=== PATIENT | female | born 1965 | race Caucasian/White ===

== ENCOUNTER → 2017-08-31 | Outpatient (CLI) | payer BC ==
[~2017-08-31] MED LIST: ALBU0.08 INH; ASPEC81 PO; ASTN NAE; BNT/10 PO; CHOL1CAP57 PO; CLS1 PO; MOME200A INH; MULT-506 PO; PRM625 PO; XPNIN INH
--- NOTE | 2017-08-31 11:50 | DIAGNOSTIC IMAGING REPORT ---
TWO VIEW CHEST CLINICAL HISTORY: Cough. FINDINGS: PA and lateral chest radiographs are compared to study dated 05/11/2015. The cardiomediastinal silhouette is unremarkable. The lungs and pleural spaces are clear. There is no pneumothorax. The bony thorax appears intact. IMPRESSION: No active disease in the chest. Electronically signed by: Casimiro Robles M.D. 08/31/2017 11:48 AM Dictated Date/Time: 08/31/2017 11:48 AM
--- NOTE | 2017-08-31 12:00 | DIAGNOSTIC IMAGING REPORT ---
SINUSES MIN 3 VIEWS ROUTINE CLINICAL HISTORY: Cough. COMPARISON STUDY: Maxillofacial CT 04/16/2016. FINDINGS: The paranasal sinuses and mastoid air cells are clear. No fluid levels identified. The nasal septum is midline. Evidence for prior uncinectomies and partial ethmoidectomies. IMPRESSION: The paranasal sinuses and mastoid air cells are clear. Electronically signed by: Saúl Marc M.D. 08/31/2017 11:58 AM Dictated Date/Time: 08/31/2017 11:57 AM
[2017-08-31 12:15] LABS: BASO % 0.3 %; BASO ABS # 0.02 K/uL (0-0.2); COMPLETE YES; EOS % 2.5 %; IG% 0.1 %; LYMPH % 43.9 %; LYMPH ABS # 3.04 K/uL (1.2-3.4); MEAN CELL VOLUME 94.9 fL (80-100); MEAN CORPUSCULAR HEMOGLOBIN 31.3 pg (25-34); MONO % 7.7 %; NEUT % 45.5 %; PLATELET COUNT 312 K/uL (130-400); RED BLOOD COUNT 4.53 M/uL (4.2-5.4); WHITE BLOOD COUNT 6.92 K/uL (4.8-10.8)
== END | disposition home or self-care (01) ==
LOC: C.RAD1850 10:57
PROVIDERS: ATTEND Internal Medicine Pulmonary Disease
DX: R05 Cough (principal); J45.30 Mild persistent asthma, uncomplicated

== ENCOUNTER → 2017-10-11 | Outpatient (CLI) | payer BC | END | disposition home or self-care (01) | LOC: C.PAPS 15:28 | PROVIDERS: ATTEND Obstetrics & Gynecology | DX: Z12.4 Encounter for screening for malignant neoplasm of cervix (principal) ==

== ENCOUNTER → 2017-11-07 | Outpatient (CLI) | payer BC ==
--- NOTE | 2017-11-08 13:29 | MAMMOGRAPHY REPORT ---
BILATERAL DIGITAL SCREENING MAMMOGRAM TOMOSYNTHESIS WITH CAD: 11/07/2017 CLINICAL HISTORY: Routine screening. TECHNIQUE: Breast tomosynthesis in addition to standard 2D mammography was performed. Current study was also evaluated with a Computer Aided Detection (CAD) system. COMPARISON: Comparison is made to exams dated: 07/11/2009 and 03/01/2008. BREAST COMPOSITION: There are scattered areas of fibroglandular density in both breasts. FINDINGS: An asymmetry in the superior posterior right breast on the MLO view is less prominent juhi ring to the 2007 and 2008 mammograms, confirming benignity. No suspicious mass, architectural distor tion or cluster of microcalcifications is seen. IMPRESSION: ACR BI-RADS CATEGORY 1: NEGATIVE There is no mammographic evidence of malignancy. A 1 year screening mammogram is recommended. The pa tient will receive written notification of the results. Approximately 10% of breast cancers are not detected with mammography. A negative mammographic report should not delay biopsy if a clinically suggestive mass is present. Miranda Valera M.D. ay/:11/07/2017 15:28:37 Wire Coating Operator Metal: Declan MATHUR(R)(M), [facility] letter sent: Normal 1/2 BI-RADS Code: ACR BI-RADS Category 1: Negative
== END | disposition home or self-care (01) ==
LOC: C.MAMM 10:27
PROVIDERS: ATTEND Obstetrics & Gynecology
DX: Z12.31 Encounter for screening mammogram for malignant neoplasm of breast (principal)

== ENCOUNTER 2020-09-24 10:11 | Observation (INO) ==
--- NOTE | 2020-09-24 10:56 | Emergency Department Note ---
History of Present Illness General Chief complaint: Arrhythmia/Palpitations Stated complaint: palpitations, sob Time Seen by Provider: 09/24/20 10:40 Source: patient Mode of arrival: ambulatory Limitations: no limitations History of Present Illness Maximum Pain Intensity: 3 This patient comes in after feeling she had heart palpitations. She notices a couple days ago mostly when she was in bed. She said to be fine during the day. She thought it was related to her estradiol and that have been increased recently so she decreased it and felt better until last she felt these during the day and thought it could be related to caffeine. She felt fine since then until last night around 5:00. She said it felt like her heart was beating fast and racing at times. She managed to go to bed but when she woke up this morning she still felt that way when she went to work she felt winded and dizzy with after walking which is unusual for her. She had flulike symptoms and was actually tested for Covid last week and was negative. She refuses further test today. She has a slight cough but has asthma. No fever or chills. No change in taste or smell. No GI symptoms. She did say that at one point she was sweaty and at times she is felt cold. No lower extremity pain or swelling in her calves. Home Medications Medication Instructions Recorded Confirmed Type desloratadine 5 mg tablet 5 mg PO QPM 06/19/20 09/24/20 History levalbuterol tartrate 45 2 inh INHALATION Q6H #15 g 06/19/20 09/24/20 Rx mcg/actuation aerosol inhaler nebulizer accessories #2 kit 06/19/20 06/19/20 Rx estradiol 0.5 mg PO QAM 09/24/20 09/24/20 History mv,Ca,min-folic acid-vit K1 1 tab PO DAILY 09/24/20 09/24/20 History [One-A-Day Women's 50 Plus] Allergies Allergy/AdvReac Type Severity Reaction Status Date / Time erythromycin base AdvReac Severe vomiting Verified 09/24/20 11:26 metoclopramide AdvReac Severe Joint Pain Verified 09/24/20 11:26 prednisone AdvReac Severe High doses Verified 09/24/20 11:26 cause heart palpitations albuterol AdvReac Mild HEART PALP Unverified 09/24/20 11:26 Penicillins AdvReac Unknown unknown Verified 09/24/20 11:26 Past Med/Surg History Medical History (Updated 09/24/20 @ 14:53 by Lyla Petersen PA-C) Asthma Asthma GERD (gastroesophageal reflux disease) History of Clostridioides difficile colitis 2015 IBS (irritable bowel syndrome) MVP (mitral valve prolapse) Surgical History (Updated 09/24/20 @ 14:37 by Lyla Petersen PA-C) History of cataract s/p extraction History of colonoscopy History of esophagogastroduodenoscopy (EGD) History of nasal surgery History of radical hysterectomy Family History Mother Asthma Diabetes Father , 73 Parkinson disease Sister Stroke Social History Smoking Status: Former smoker packs per day: 1; Years Smoked: 15; Smoking End Date: 1999; Do You Dip or Chew Tobacco: No; Tobacco Cessation Education Requested by Patient: No Hx Alcohol Use: No Hx Substance Use: No Preferred Language: Maltese marital status: Current Living Situation: Spouse 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 How many Children do You have: 2 Feels Safe at Home: Yes Review of Systems A total of 10 systems reviewed and were otherwise negative Physical Exam Vital Signs Vital Signs - 24 hr 09/24/20 10:14 09/24/20 10:28 09/24/20 10:30 Temperature 36.7 C Temperature Source Temporal Artery Scan Pulse Rate 74 70 67 Pulse Rate [Apical] Pulse Rate from SpO2 Sensor Respiratory Rate 18 20 13 Respiratory Effort / Characteristics Non-Labored Spontaneous Respiratory Depth Normal Respiratory Pattern Blood Pressure 136/91 Blood Pressure [Right Arm] Blood Pressure Mean 106 Blood Pressure Mean [Right Arm] Pulse Oximetry 100 Oxygen Delivery Method Room Air Sepsis Recent Fever Within 48 Hours No Sepsis New/Unexplained Change in Mental Status N/A Sepsis Action Taken by Nursing No Action Required 09/24/20 11:00 09/24/20 11:01 09/24/20 11:02 Temperature Temperature Source Pulse Rate 61 60 62 Pulse Rate [Apical] 63 Pulse Rate from SpO2 Sensor 62 Respiratory Rate 17 14 21 Respiratory Effort / Characteristics Non-Labored Spontaneous Respiratory Depth Normal Respiratory Pattern Regular Blood Pressure 126/75 Blood Pressure [Right Arm] 126/75 Blood Pressure Mean 80 Blood Pressure Mean [Right Arm] 92 Pulse Oximetry 99 Oxygen Delivery Method Room Air Sepsis Recent Fever Within 48 Hours Sepsis New/Unexplained Change in Mental Status Sepsis Action Taken by Nursing 09/24/20 11:30 09/24/20 11:31 09/24/20 12:00 Temperature Temperature Source Pulse Rate 61 58 L 62 Pulse Rate [Apical] Pulse Rate from SpO2 Sensor 58 L 58 L 64 Respiratory Rate 12 14 13 Respiratory Effort / Characteristics Respiratory Depth Respiratory Pattern Blood Pressure 120/78 115/78 Blood Pressure [Right Arm] Blood Pressure Mean 83 90 Blood Pressure Mean [Right Arm] Pulse Oximetry 94 100 100 Oxygen Delivery Method Sepsis Recent Fever Within 48 Hours Sepsis New/Unexplained Change in Mental Status Sepsis Action Taken by Nursing 09/24/20 12:01 09/24/20 12:30 09/24/20 12:31 Temperature Temperature Source Pulse Rate 58 L 64 67 Pulse Rate [Apical] Pulse Rate from SpO2 Sensor 58 L 63 66 Respiratory Rate 11 L 17 18 Respiratory Effort / Characteristics Respiratory Depth Respiratory Pattern Blood Pressure 112/71 Blood Pressure [Right Arm] Blood Pressure Mean 82 Blood Pressure Mean [Right Arm] Pulse Oximetry 100 98 98 Oxygen Delivery Method Sepsis Recent Fever Within 48 Hours Sepsis New/Unexplained Change in Mental Status Sepsis Action Taken by Nursing 09/24/20 13:01 09/24/20 13:30 09/24/20 13:31 Temperature Temperature Source Pulse Rate 66 61 61 Pulse Rate [Apical] Pulse Rate from SpO2 Sensor 66 61 62 Respiratory Rate 15 12 21 Respiratory Effort / Characteristics Respiratory Depth Respiratory Pattern Blood Pressure 118/80 119/83 Blood Pressure [Right Arm] Blood Pressure Mean 91 93 Blood Pressure Mean [Right Arm] Pulse Oximetry 100 99 99 Oxygen Delivery Method Sepsis Recent Fever Within 48 Hours Sepsis New/Unexplained Change in Mental Status Sepsis Action Taken by Nursing 09/24/20 14:00 09/24/20 14:01 09/24/20 14:08 Temperature Temperature Source Pulse Rate 61 66 Pulse Rate [Apical] 57 L Pulse Rate from SpO2 Sensor 60 67 Respiratory Rate 17 20 18 Respiratory Effort / Characteristics Respiratory Depth Respiratory Pattern Blood Pressure 117/80 Blood Pressure [Right Arm] 117/80 Blood Pressure Mean 94 Blood Pressure Mean [Right Arm] 92 Pulse Oximetry 100 100 100 Oxygen Delivery Method Room Air Sepsis Recent Fever Within 48 Hours Sepsis New/Unexplained Change in Mental Status Sepsis Action Taken by Nursing 09/24/20 14:30 09/24/20 14:31 Temperature Temperature Source Pulse Rate 61 61 Pulse Rate [Apical] Pulse Rate from SpO2 Sensor 62 61 Respiratory Rate 19 20 Respiratory Effort / Characteristics Respiratory Depth Respiratory Pattern Blood Pressure 145/79 H Blood Pressure [Right Arm] Blood Pressure Mean 90 Blood Pressure Mean [Right Arm] Pulse Oximetry 100 100 Oxygen Delivery Method Sepsis Recent Fever Within 48 Hours Sepsis New/Unexplained Change in Mental Status Sepsis Action Taken by Nursing General: Well developed well nourished female who appears in no acute distress, breathing comfortably on room air. Normal speech HEENT: Normal cephalic atraumatic. Pupils are equal round and reactive to light. Extraocular movements are intact. Oropharynx is pink with moist mucous membranes. No swelling of the mouth lips or tongue. Neck: Supple with a midline trachea. No meningeal signs or stiffness, no JVD or bruits. No Stridor. Chest: Clear to auscultation bilaterally. No wheezes or rhonchi. No increased work of breathing. Heart: Regular rate and rhythm without murmurs or gallops. Abdomen: Soft nontender, nondistended without rebound guarding or rigidity. Extremities: No cyanosis clubbing or edema. No calf tenderness or assymetry Spine/Back. Non tender to palpation. No CVA tenderness Skin: Good turgor without rashes. Neurologic exam: Cranial nerves two through 12 are intact. Motor and sensation are intact and symmetrical throughout. Course Administered Medications Discontinued Medications Sodium Chloride (Nss 1000ml) 1,000 mls @ 999 mls/hr IV .Q1H1M KIRSTY Stop: 09/24/20 12:00 Last Infusion: 09/24/20 12:03 Dose: 0 mls/hr Documented by: [id number] Admin: 09/24/20 11:00 Dose: 999 mls/hr Documented by: [id number] Ioversol (Optiray 320 125ml) 119 ml IV ONCE ONE Stop: 09/24/20 12:57 Last Admin: 09/24/20 12:57 Dose: 119 ml Documented by: [id number] Potassium Chloride (Potassium Chloride 10 Meq Tabcr) Confirm Administered Dose 40 meq PO .STK-MED ONE Stop: 09/24/20 14:14 Last Admin: 09/24/20 14:16 Dose: 40 meq Documented by: [id number] Medical Decision Making Differential Diagnosis Acute coronary syndrome, arrhythmia, thyroid disease, medication side effect, anxiety, PE, Covid, pneumothorax, anemia, infection Medical Records Attestation: I reviewed the patient's medical records. Laboratory Data Attestation: I reviewed the patient's lab results. Result diagrams: 09/24/20 10:32 09/24/20 10:32 Lab Results 09/24/20 09/24/20 09/24/20 Range/Units 10:32 10:32 10:32 WBC 8.29 (4.8-10.8) K/uL RBC 4.87 (4.2-5.4) M/uL Hgb 15.1 (12.0-16.0) g/dL Hct 45.7 (37-47) % MCV 93.8 (80-100) fL MCH 31.0 (25-34) pg MCHC 33.0 (32-36) g/dL RDW Std Deviation 47.1 H (36.4-46.3) fL RDW Coeff of Imelda 13.8 (11.5-14.5) % Plt Count 397 (130-400) K/uL MPV 10.4 (7.4-10.4) fL Immature Gran % (Auto) 0.1 % Neut % (Auto) 56.1 % Lymph % (Auto) 35.9 % [place] % (Auto) 6.2 % Eos % (Auto) 1.6 % Baso % (Auto) 0.1 % Neut # (Auto) 4.65 (1.4-6.5) K/uL Lymph # (Auto) 2.98 (1.2-3.4) K/uL [place] # (Auto) 0.51 (0.11-0.59) K/uL Eos # (Auto) 0.13 (0-0.5) K/uL Baso # (Auto) 0.01 (0-0.2) K/uL Immature Gran # (Auto) 0.01 (0.00-0.02) K/uL PT 10.3 (9.0-12.0) Seconds INR 1.0 (0.9-1.1) APTT 33.5 H (21.0-31.0) Seconds PTT Ratio 1.2 D-Dimer 410 (0-500) ug/L FEU Sodium 140 (136-145) mmol/L Potassium 3.7 (3.5-5.1) mmol/L Chloride 107 (98-107) mmol/L Carbon Dioxide 27 (21-32) mmol/L Anion Gap 6.0 (3-11) BUN 17 (7-18) mg/dl Creatinine 0.86 (0.6-1.2) mg/dl Est Cr Clr Drug Dosing 88.7 ml/min Est GFR ( Amer) 87.5 Est GFR (Non-Af Amer) 75.5 BUN/Creatinine Ratio 20.3 H (10-20) Glucose 79 (70-99) mg/dl Calcium 9.2 (8.5-10.1) mg/dl Magnesium (1.8-2.4) mg/dl Total Bilirubin 0.3 (0.2-1) mg/dl AST 14 L (15-37) U/L ALT 20 (12-78) U/L Alkaline Phosphatase 87 (45-117) U/L Troponin I < 0.015 (0-0.045) ng/ml Total Protein 7.8 (6.4-8.2) gm/dl Albumin 3.6 (3.4-5.0) gm/dl Globulin 4.2 H (2.5-4.0) gm/dl Albumin/Globulin Ratio 0.9 (0.9-2) Lipase 156 (73-393) U/L TSH (0.300-4.500) uIu/ml COVID-19 Eval Order SARS-CoV-2, RNA, NAAT (NEGATIVE) 09/24/20 09/24/20 09/24/20 Range/Units 10:32 14:05 14:05 WBC (4.8-10.8) K/uL RBC (4.2-5.4) M/uL Hgb (12.0-16.0) g/dL Hct (37-47) % MCV (80-100) fL MCH (25-34) pg MCHC (32-36) g/dL RDW Std Deviation (36.4-46.3) fL RDW Coeff of Imelda (11.5-14.5) % Plt Count (130-400) K/uL MPV (7.4-10.4) fL Immature Gran % (Auto) % Neut % (Auto) % Lymph % (Auto) % [place] % (Auto) % Eos % (Auto) % Baso % (Auto) % Neut # (Auto) (1.4-6.5) K/uL Lymph # (Auto) (1.2-3.4) K/uL [place] # (Auto) (0.11-0.59) K/uL Eos # (Auto) (0-0.5) K/uL Baso # (Auto) (0-0.2) K/uL Immature Gran # (Auto) (0.00-0.02) K/uL PT (9.0-12.0) Seconds INR (0.9-1.1) APTT (21.0-31.0) Seconds PTT Ratio D-Dimer (0-500) ug/L FEU Sodium (136-145) mmol/L Potassium (3.5-5.1) mmol/L Chloride (98-107) mmol/L Carbon Dioxide (21-32) mmol/L Anion Gap (3-11) BUN (7-18) mg/dl Creatinine (0.6-1.2) mg/dl Est Cr Clr Drug Dosing ml/min Est GFR ( Amer) Est GFR (Non-Af Amer) BUN/Creatinine Ratio (10-20) Glucose (70-99) mg/dl Calcium (8.5-10.1) mg/dl Magnesium 2.3 (1.8-2.4) mg/dl Total Bilirubin (0.2-1) mg/dl AST (15-37) U/L ALT (12-78) U/L Alkaline Phosphatase (45-117) U/L Troponin I (0-0.045) ng/ml Total Protein (6.4-8.2) gm/dl Albumin (3.4-5.0) gm/dl Globulin (2.5-4.0) gm/dl Albumin/Globulin Ratio (0.9-2) Lipase (73-393) U/L TSH 1.440 (0.300-4.500) uIu/ml COVID-19 Eval [facility] SARS-CoV-2, RNA, NAAT NEGATIVE (NEGATIVE) Imaging Data Radiologist's Impression: CT angio chest PE protocol CT DOSE: 545.72 mGycm HISTORY: 55 years-old Female with PE. Acute shortness of breath with chest pain TECHNIQUE: Multiple CTA images of the chest were obtained after the intravenous administration of 119 ml Optiray 320. Coronal and sagittal MIPS were obtained from the axial data set and were submitted for review. All measurements were obtained according to NASCET criteria. A dose lowering technique was utilized adhering to the principles of ALARA. COMPARISON: Chest radiograph of same day, CTA chest 05/11/2015 FINDINGS: CTA: The heart is normal in size. There is no pericardial effusion. No thoracic aortic aneurysm or dissection. There is patency of the imaged great vessels. The pulmonary artery is opacified to the level of the segmental branches and demonstrates no filling defects to suggest thromboembolic disease. CT CHEST: Unremarkable thyroid. No pathologically enlarged lymph nodes. There is a 1.3 x 0.9 cm nodular focus of the upper outer quadrant right breast on image 181 series 4 which appears unchanged from the 2015 study. There is no pneumothorax, pleural effusion, airspace consolidation or overt pulmonary edema. Mild dependent bibasilar groundglass densities suggest probable atelectasis.. Punctate calcific granuloma of the right lung apex. There are several bilateral low suspicion solid pulmonary nodules noted measuring up to 4 mm (please see bookmarks). Most of these appear to be new from 2015. There is no acute process of the imaged upper abdomen. Tiny hiatal hernia. Hypodense lesion of the right hepatic lobe measuring up to 2.3 cm demonstrates water attenuation is suggestive of a cyst, however previously measured 1.2 cm. A few additional scattered hypodensities of the left hepatic lobe are also noted which are incompletely characterized on this exam. Bones appear intact. There is no acute fracture. IMPRESSION: 1. No evidence of pulmonary emboli. 2. No adenopathy, pleural effusion or airspace consolidation to suggest pneumonia. 3. There are several scattered low suspicion bilateral solid pulmonary nodules measuring up to 4 mm. Follow-up guidelines provided below. 4. Tiny hiatal hernia. XR chest 1V portable CLINICAL HISTORY: Atypical chest pain. COMPARISON STUDY: Chest radiograph June 17, 2020. FINDINGS: Lung volumes are normal. Lungs are clear. There is no pneumothorax or pleural effusion. Cardiac size is normal. Mediastinal contours are normal. There is no evidence for pulmonary edema. IMPRESSION: No acute cardiopulmonary findings. ECG Data Attestation: I personally reviewed and interpreted this ECG as follows: Indication: + palpitations Rate (beats per minute): 67 Rhythm: + normal sinus ECG Intervals/blocks: + Normal QRS, + Normal QT and + Normal FL ECG [place]: + Normal ECG ST segments: + Normal ST segments ECG Findings: no PACs and no PVCs Comparison ECG Date: from (06/16/20) [facility] Narrative This patient comes in after every palpitations at present she looks well she felt short of breath with walking. She has a nonischemic EKG her troponin is negative symptoms been going on for several weeks off and on. I did a chest x-r ay was unremarkable her D-dimer was high end of normal so I did a chest CT and it was unremarkable. there is no PE or pneumonia. She has had Covid testing within the last week ended I think likely has Covid testing, I suggest we recheck her here she declines. On her CT she has no Covid type changes. She has no significant electrolyte or metabolic abnormalities. Despite her initial cardiac work-up looking okay here, I am concerned that she had an episode today where she got diaphoretic and short of breath and did not feel well with near syncope while walking and exerting herself. I do think she would benefit for further cardiac evaluation. I have consulted the hospitalist team to see her in the ER. Continuous cardiac monitoring: An order was placed in the EMR for continuous cardiac monitoring. The patient was noted to be in normal sinus rhythm with a rate of 67. Impression & Plan Near syncope, Palpitations, MCFARLANE (dyspnea on exertion), Chest pain Discharge Plan Visit Data Chief Complaint: Arrhythmia/Palpitations Stated Complaint: palpitations, sob ED Provider: Garrett Abrams Discharge Problem: Near syncope, Palpitations, MCFARLANE (dyspnea on exertion), Chest pain Forms Stand Alone Forms: My [facility] CodeRyte Prescriptions Prescriptions: No Action desloratadine 5 mg tablet 5 mg PO QPM RF: 0 levalbuterol tartrate [Xopenex HFA] 45 mcg/actuation HFA aerosol inhaler 2 inh inhalation Q6H Qty: 15 RF: 3 (DME) nebulizer accessories Kit See Rx Instructions .ROUTE .MEDSUPPLY Qty: 2 RF: 5 estradiol 0.5 mg tablet 0.5 mg PO QAM RF: 0 One-A-Day Women's 50 Plus 400-20 mcg Tablet 1 tab PO DAILY RF: 0 Discharge Problem: Chest pain Qualifiers: Chest pain type: unspecified Qualified Code(s): R07.9 - Chest pain, unspecified
[2020-09-24] MEDS ORDERED: SODIUM CHLORIDE 0.9% 1000ML 1,000 ML IV SCH (11:00)
[2020-09-24 11:12] LABS: Basophils # (auto) 0.01 K/uL (0-0.2); Basophils % (auto) 0.1 %; Eosinophils # (auto) 0.13 K/uL (0-0.5); Eosinophils % (auto) 1.6 %; Hematocrit (blood only) 45.7 % (37-47); Hemoglobin 15.1 g/dL (12.0-16.0); Immature Granulocytes # (auto) 0.01 K/uL (0.00-0.02); Immature Granulocytes % (auto) 0.1 %; Lymphocytes # (auto) 2.98 K/uL (1.2-3.4); Lymphocytes % (auto) 35.9 %; Mean Corpuscular Volume 93.8 fL (80-100); Mean Platelet Volume 10.4 fL (7.4-10.4); Monocytes # (auto) 0.51 K/uL (0.11-0.59); Monocytes % (auto) 6.2 %; Neutrophils # (auto) 4.65 K/uL (1.4-6.5); Neutrophils % (auto) 56.1 %; Platelet Count 397 K/uL (130-400); RDW Coefficient of Variation 13.8 % (11.5-14.5); RDW Standard Deviation 47.1 fL (36.4-46.3); Red Blood Count 4.87 M/uL (4.2-5.4); White Blood Count 8.29 K/uL (4.8-10.8)
[2020-09-24 11:19] LABS: D Dimer 410 ug/L FEU (0-500); Partial Thromboplastin Ratio 1.2; Partial Thromboplastin Time 33.5 Seconds (21.0-31.0); Prothrombin Time 10.3 Seconds (9.0-12.0)
[2020-09-24 11:26] LABS: Alanine Aminotransferase 20 U/L (12-78); Albumin Level 3.6 gm/dl (3.4-5.0); Aspartate Aminotransferase 14 U/L (15-37); BUN Creatinine Ratio 20.3 (10-20); Blood Urea Nitrogen 17 mg/dl (7-18); Calcium 9.2 mg/dl (8.5-10.1); Carbon Dioxide 27 mmol/L (21-32); Chloride 107 mmol/L (98-107); Creatinine Clr Calc Pharmacy 88.7 ml/min; Est GFR (African American) 87.5; Est GFR (Non-African American) 75.5; Glucose 79 mg/dl (70-99); Lipase 156 U/L (73-393); Potassium 3.7 mmol/L (3.5-5.1); Sodium 140 mmol/L (136-145)
[2020-09-24 11:31] LABS: Albumin Globulin Ratio 0.9 (0.9-2); Alkaline Phosphatase 87 U/L (45-117); Bilirubin,Total 0.3 mg/dl (0.2-1); Globulin 4.2 gm/dl (2.5-4.0); Total Protein 7.8 gm/dl (6.4-8.2); Troponin I < 0.015 ng/ml (0-0.045)
--- NOTE | 2020-09-24 11:37 | XRay Report ---
XR chest 1V portable CLINICAL HISTORY: Atypical chest pain. COMPARISON STUDY: Chest radiograph June 17, 2020. FINDINGS: Lung volumes are normal. Lungs are clear. There is no pneumothorax or pleural effusion. Car diac size is normal. Mediastinal contours are normal. There is no evidence for pulmonary edema. IMPRESSION: No acute cardiopulmonary findings. ACT 112: Negative or not required by law. Electronically signed by: Eladio Gomez M.D. 09/24/2020 11:36 AM
[2020-09-24] MEDS ORDERED: OPTIRAY 320 125ml IV ONE (12:56)
--- NOTE | 2020-09-24 13:11 | CT Scan Report ---
CT angio chest PE protocol CT DOSE: 545.72 mGycm HISTORY: 55 years-old Female with PE. Acute shortness of breath with chest pain TECHNIQUE: Multiple CTA images of the chest were obtained after the intravenous administration of 119 ml Optiray 320. Coronal and sagittal MIPS were obtained from the axial data set and were submitted for review. All measurements were obtained according to NASCET criteria. A dose lowering technique w as utilized adhering to the principles of ALARA. COMPARISON: Chest radiograph of same day, CTA chest 05/11/2015 FINDINGS: CTA: The heart is normal in size. There is no pericardial effusion. No thoracic aortic aneurysm or dissect ion. There is patency of the imaged great vessels. The pulmonary artery is opacified to the level of the segmental branches and demonstrates no filling defects to suggest thromboembolic disease. CT CHEST: Unremarkable thyroid. No pathologically enlarged lymph nodes. There is a 1.3 x 0.9 cm nodular focus o f the upper outer quadrant right breast on image 181 series 4 which appears unchanged from the 2015 s tudy. There is no pneumothorax, pleural effusion, airspace consolidation or overt pulmonary edema. Mild dep endent bibasilar groundglass densities suggest probable atelectasis.. Punctate calcific granuloma of the right lung apex. There are several bilateral low suspicion solid pulmonary nodules noted measurin g up to 4 mm (please see bookmarks). Most of these appear to be new from 2015. There is no acute process of the imaged upper abdomen. Tiny hiatal hernia. Hypodense lesion of the ri ght hepatic lobe measuring up to 2.3 cm demonstrates water attenuation is suggestive of a cyst, howev er previously measured 1.2 cm. A few additional scattered hypodensities of the left hepatic lobe are also noted which are incompletely characterized on this exam. Bones appear intact. There is no acute fracture. IMPRESSION: 1. No evidence of pulmonary emboli. 2. No adenopathy, pleural effusion or airspace consolidation to suggest pneumonia. 3. There are several scattered low suspicion bilateral solid pulmonary nodules measuring up to 4 mm. Follow-up guidelines provided below. 4. Tiny hiatal hernia. Please refer to below summary of Fleischner criteria recommendations for follow-up of incidental CT n odules ([place], Guidelines for management of small pulmonary nodules detected on CT scans: A sta tement from the Fleischner Society, Radiology 237: [phone].) SOLID NODULES Multiple nodules size: <6 mm * Low risk patients: no routine follow-up * high risk patients: optional CT at 12 months Note: newly detected indeterminate nodule in persons 35 years of age or older. * Low risk patients: minimal or absent history of smoking and/or other known risk factors * high risk patients: history of smoking or of other known risk factors (e.g. first degree relative with lung cancer, or exposure to asbestos, radon, uranium) * if a nodule up to 8 mm is partly solid or is ground glass further follow-up is required after 24 m onths to exclude possible slow growing adenocarcinoma (DEON) ACT 112: Negative or not required by law. The above report was generated using voice recognition software. It may contain grammatical, syntax o r spelling errors. Electronically signed by: Pepito Anthony M.D. 09/24/2020 1:10 PM
[2020-09-24] MEDS ORDERED: POLYETHYLENE (MIRALAX) 17 GM PACK PO PRN (14:04)
[2020-09-24] MEDS ORDERED: POTASSIUM CHLORIDE CRTAB 20 MEQ TABCR PO STA (14:04)
[2020-09-24] MEDS ORDERED: ONDANSETRON INJ 2 MG/ML 2 ML VIAL IV PRN (14:04)
[2020-09-24] MEDS ORDERED: MAGNESIUM HYDROXIDE SUSP 30 ML UDC PO PRN (14:04)
[2020-09-24] MEDS ORDERED: ALUMINUM/MAGNESIUM SUSP 30 ML UDC PO PRN (14:04)
[2020-09-24] MEDS ORDERED: ACETAMINOPHEN 325 MG TAB PO PRN (14:04)
[2020-09-24] MEDS ORDERED: POTASSIUM CHLORIDE 10 MEQ TABCR PO ONE (14:13)
--- NOTE | 2020-09-24 14:15 | History & Physical Report ---
Date of Service September 24, 2020 Assessment & Plan (1) Near syncope: (2) Palpitations: (3) [place] (dyspnea on exertion): Admit to tele obtain echocardiogram - pt reported 30 years ago told she had mitral valve prolapse but follow up echocardiograms didn't show that, last 2009 keep mag > 2.0 K > 4.0 - ordered 40meq KCL in ED TSH okay Labs/imaging reviewed continue to monitor on tele - may need ZIO patch as outpt if event not captured while inpatient obtain orthostatics cycle troponin, ecg will hold off on cardiology consult at this point (4) Asthma: no acute exac continue prn levalbuterol (5) Abnormal CT of the chest: Chest CTA was negative for PE, adenopathy, pleural effusion or airspace consolidation. Several scattered low suspicion bilateral solid pulmonary nodules 4 mm. Also noted incidentally were hypodense lesion of right hepatic lobe measuring 2.3 cm suggestive of cyst, but previously 1.2 cm. A few scattered hypodense of the left hepatic lobe as well not completely characteri zed. recommend follow up chest CT in 1 year as outpt recommend RUQ ultrasound as outpatient (6) DVT prophylaxis: SCDS/TEDS if hospitalized > 24 hour consider chemical prophylaxis encourage ambulation Disposition: admit to tele Follow up: PCP Dr. Moran upon discharge Pt was seen and examined in collaboration with Dr. León, please see addendum History of Present Illness Chief Complaint: Palpitations off and on x2 weeks. Primary Care Provider: Chrissy Moran MD This is a 55-year-old female who has significant past medical history of asthma, chronic sinusitis, GERD, IBS, history of C. difficile who presents to ED secondary to palpitations off and on x2 weeks. She states symptoms initially started approximately 2 weeks ago that would come and go and was just described as, "rapid heartbeat," for several minutes before resolving. She noticed last after drinking a coffee with an espresso shot she developed similar symptoms. This also occurred after shoveling snow when she thought maybe she overdid it. Last night symptoms started again at approximately 5 PM. This time it included rapid heartbeat, lightheadedness, nausea and diaphoresis. She also complained of generalized precordial chest tightness. Symptoms slowly improved and she was able to sleep last night. However, when she woke up first in this morning at approximately 6 AM symptoms returned. She tried to go to work and at work developed worsening palpitations, diaphoresis, lightheadedness and dizziness. She also developed shortness of breath and had difficulty walking to her vehicle. She opted to present to ED. She denies similar symptoms in the past. She does elicit a recent increase in her estrogen placement and thought this may be the cause. She denies any tobacco or illicit drug use. She does not drink significant amount of caffeine. She denies any strong family history of heart disease In ED patient remained hemodynamically stable. BP 145/79, heart rate 61. EKG revealed normal sinus rhythm. Her CBC and CMP was generally unremarkable. TSH WNL. Covid screen negative. Chest CTA was negative for PE, adenopathy, pleural effusion or airspace consolidation. Several scattered low suspicion bilateral solid pulmonary nodules 4 mm. Also noted incidentally were hypodense lesion of right hepatic lobe measuring 2.3 cm suggestive of cyst, but previously 1.2 cm. A few scattered hypodense of the left hepatic lobe as well not completely characterized. Allergies Allergy/AdvReac Type Severity Reaction Status Date / Time erythromycin base AdvReac Severe vomiting Verified 09/24/20 11:26 metoclopramide AdvReac Severe Joint Pain Verified 09/24/20 11:26 prednisone AdvReac Severe High doses Verified 09/24/20 11:26 cause heart palpitations albuterol AdvReac Mild HEART PALP Unverified 09/24/20 11:26 Penicillins AdvReac Unknown unknown Verified 09/24/20 11:26 Home Medications Medication Instructions Recorded Confirmed Type desloratadine 5 mg tablet 5 mg PO QPM 06/19/20 09/24/20 History levalbuterol tartrate 45 2 inh INHALATION Q6H #15 g 06/19/20 09/24/20 Rx mcg/actuation aerosol inhaler nebulizer accessories #2 kit 06/19/20 06/19/20 Rx estradiol 0.5 mg PO QAM 09/24/20 09/24/20 History mv,Ca,min-folic acid-vit K1 1 tab PO DAILY 09/24/20 09/24/20 History [One-A-Day Women's 50 Plus] Past Med/Surg History Medical History (Updated 09/24/20 @ 14:53 by Lyla Petersen PA-C) Asthma Asthma GERD (gastroesophageal reflux disease) History of Clostridioides difficile colitis 2016 IBS (irritable bowel syndrome) MVP (mitral valve prolapse) Surgical History (Updated 09/24/20 @ 14:37 by Lyla Petersen PA-C) History of cataract s/p extraction History of colonoscopy History of esophagogastroduodenoscopy (EGD) History of nasal surgery History of radical hysterectomy Family History Mother Asthma Diabetes Father , 73 Parkinson disease Sister Stroke Social History Smoking Status: Former smoker packs per day: 1; Years Smoked: 15; Smoking End Date: 1999; Do You Dip or Chew Tobacco: No; Tobacco Cessation Education Requested by Patient: No Hx Alcohol Use: No Hx Substance Use: No Preferred Language: Spanish marital status: Current Living Situation: Spouse 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 Normal insp/exp effort, no accessory muscle use Cardiovascular: RRR, no murmur, no edema Vessels: no JVD or carotid bruit Chest: normal inspection of chest Abdomen: normal bowel sounds, soft, nontender, no hepatosplenomegaly Musculoskeletal: no cyanosis or clubbing, extremities motor strength 5/5 Skin: no rashes, warm and dry normal turgor Neurologic: PERRL, EOMI, accommodation nl, no face palsy, no dysarthria CN's II-XI intact bilaterally and moves all extremities Psychiatric: A+Ox3, euthymic affect Lymphatic: no cervical or axillary lymphadenopathy : deferred Results & Data Results & Data ([facility] [place]) Vital Signs (Past 12 Hours) Vital Signs Temp Pulse Pulse Resp BP BP Pulse Ox 09/24/20 14:08 57 L 18 117/80 100 09/24/20 14:01 66 20 100 09/24/20 14:00 61 17 117/80 100 09/24/20 13:31 61 21 99 09/24/20 13:30 61 12 119/83 99 09/24/20 13:01 66 15 118/80 100 09/24/20 12:31 67 18 98 09/24/20 12:30 64 17 112/71 98 09/24/20 12:01 58 L 11 L 100 09/24/20 12:00 62 13 115/78 100 09/24/20 11:31 58 L 14 120/78 100 09/24/20 11:30 61 12 94 09/24/20 11:02 62 63 21 126/75 99 09/24/20 11:01 60 14 126/75 09/24/20 11:00 61 17 09/24/20 10:30 67 13 09/24/20 10:28 70 20 09/24/20 10:14 36.7 C 74 18 136/91 100 Laboratory Results Short CBC 09/24/20 Range/Units 10:32 WBC 8.29 (4.8-10.8) K/uL Hgb 15.1 (12.0-16.0) g/dL Hct 45.7 (37-47) % Plt Count 397 (130-400) K/uL BMP 09/24/20 10:32 Sodium 140 Potassium 3.7 Chloride 107 Carbon Dioxide 27 BUN 17 Creatinine 0.86 Glucose 79 Calcium 9.2 Cardiac Enzymes 09/24/20 Range/Units 10:32 Troponin I < 0.015 (0-0.045) ng/ml Liver Function 09/24/20 Range/Units 10:32 Total Bilirubin 0.3 (0.2-1) mg/dl AST 14 L (15-37) U/L ALT 20 (12-78) U/L Alkaline Phosphatase 87 (45-117) U/L Albumin 3.6 (3.4-5.0) gm/dl Diagnostic Findings Chest CTA: FINDINGS: CTA: The heart is normal in size. There is no pericardial effusion. No thoracic aortic aneurysm or dissection. There is patency of the imaged great vessels. The pulmonary artery is opacified to the level of the segmental branches and demonstrates no filling defects to suggest thromboembolic disease. CT CHEST: Unremarkable thyroid. No pathologically enlarged lymph nodes. There is a 1.3 x 0.9 cm nodular focus of the upper outer quadrant right breast on image 181 series 4 which appears unchanged from the 2015 study. There is no pneumothorax, pleural effusion, airspace consolidation or overt pulmonary edema. Mild dependent bibasilar groundglass densities suggest probable atelectasis.. Punctate calcific granuloma of the right lung apex. There are several bilateral low suspicion solid pulmonary nodules noted measuring up to 4 mm (please see bookmarks). Most of these appear to be new from 2015. There is no acute process of the imaged upper abdomen. Tiny hiatal hernia. Hypodense lesion of the right hepatic lobe measuring up to 2.3 cm demonstrates water attenuation is suggestive of a cyst, however previously measured 1.2 cm. A few additional scattered hypodensities of the left hepatic lobe are also noted which are incompletely characterized on this exam. Bones appear intact. There is no acute fracture. IMPRESSION: 1. No evidence of pulmonary emboli. 2. No adenopathy, pleural effusion or airspace consolidation to suggest pneumonia. 3. There are several scattered low suspicion bilateral solid pulmonary nodules measuring up to 4 mm. Follow-up guidelines provided below. 4. Tiny hiatal hernia. Please refer to below summary of Fleischner criteria recommendations for follow- up of incidental CT nodules ([place], Guidelines for management of small pulmonary nodules detected on CT scans: A statement from the Fleischner Society, Radiology 237: [phone].) SOLID NODULES Multiple nodules size: <6 mm * Low risk patients: no routine follow-up * high risk patients: optional CT at 12 months Note: newly detected indeterminate nodule in persons 35 years of age or older. * Low risk patients: minimal or absent history of smoking and/or other known risk factors * high risk patients: history of smoking or of other known risk factors (e.g. first degree relative with lung cancer, or exposure to asbestos, radon, uranium) * if a nodule up to 8 mm is partly solid or is ground glass further follow-up is required after 24 months to exclude possible slow growing adenocarcinoma (DEON) CXR: IMPRESSION: No acute cardiopulmonary findings. Medications Administered Discontinued Medications Sodium Chloride (Nss 1000ml) 1,000 mls @ 999 mls/hr IV .Q1H1M KIRSTY Stop: 09/24/20 12:00 Last Infusion: 09/24/20 12:03 Dose: 0 mls/hr Documented by: [id number] Admin: 09/24/20 11:00 Dose: 999 mls/hr Documented by: [id number] Ioversol (Optiray 320 125ml) 119 ml IV ONCE ONE Stop: 09/24/20 12:57 Last Admin: 09/24/20 12:57 Dose: 119 ml Documented by: [id number] ECG Rate (beats per minute): 67 Rhythm: normal sinus Code Status & VTE Plan Code Status Full Code VTE Prophylaxis Plan VTE Prophylaxis will be ordered: Yes Supervising Physician Co-Signing Physician Notes Attending addendum: The patient was seen and examined in medical telemetry unit She has been complaining of paroxysmal palpitation for the last 3 to 4 weeks The longest one happened to be this morning with shortness of breath, chest pain and swelling She is not a heavy drinker of coffee and/or alcohol Denies any symptoms during examination On examination No apparent distress at rest Chest-clear to auscultate bilaterally Heart-S1, S2 and no murmur appreciated-she has a history of mitral valve prolapse Abdomen-benign Extremities-no edema Her admission labs, EKG and imaging studies reviewed EKG remained in sinus rhythm, possible J-point elevation, minimal involving the inferior leads We will check troponin x3 and echocardiogram Monitor her in the telemetry unit If ruled out and if no other arrhythmias she can be discharged tomorrow with a Holter monitor for about a week Agree with assessment and plan as outlined above by STEPHANY Paiz Dr
[2020-09-24 14:47] LABS: Magnesium 2.3 mg/dl (1.8-2.4); Thyroid Stimulating Hormone 1.44 uIu/ml (0.300-4.500)
--- NOTE | 2020-09-24 17:09 | Electrocardiogram Report ---
Test Reason : Blood Pressure : / mmHG Vent. Rate : 067 BPM Atrial Rate : 067 BPM P-R Int : 166 ms QRS Dur : 078 ms QT Int : 426 ms P-R-T Axes : 044 048 043 degrees QTc Int : 450 ms Normal sinus rhythm Low voltage QRS Borderline ECG When compared with ECG of 16-JUN-2020 23:53, No significant change was found Confirmed by Jevon Lepe ([id number]) on 09/24/2020 5:09:01 PM Referred By: Confirmed By:Jevon Lepe
[2020-09-24] MEDS ORDERED: LEVALBUTEROL TARTRATE 15 GM HFA.AER.AD INH PRN (17:17)
[2020-09-25 06:18] LABS: Chol HDL Ratio 2; Cholesterol 206 mg/dl (0-200); HDL Cholesterol 107 mg/dl; LDL Cholesterol Calculated 84 mg/dl; Triglycerides 77 mg/dl (0-150); VLDL Cholesterol 15 mg/dl
[2020-09-25 06:50] LABS: Estimated Average Glucose 117 mg/dl; Hemoglobin A1C 5.7 % (4.5-5.6)
[2020-09-25] MEDS ORDERED: estradioL 1 MG TAB PO SCH (09:00)
[2020-09-25] MEDS ORDERED: MULTIVITAMIN TAB PO SCH (09:00)
--- NOTE | 2020-09-25 09:27 | Electrocardiogram Report ---
Test Reason : Blood Pressure : / mmHG Vent. Rate : 059 BPM Atrial Rate : 059 BPM P-R Int : 182 ms QRS Dur : 080 ms QT Int : 444 ms P-R-T Axes : 077 063 067 degrees QTc Int : 439 ms Sinus bradycardia Otherwise normal ECG When compared with ECG of 24-SEP-2020 10:36, No significant change was found Confirmed by Jevon Lepe ([id number]) on 09/25/2020 9:27:25 AM Referred By: Chrissy Moran Confirmed By:Jevon Lepe
--- NOTE | 2020-09-25 12:44 | Discharge Summary ---
Date of Service September 25, 2020 Admission HPI Per Admitting Provider This is a 55-year-old female who has significant past medical history of asthma, chronic sinusitis, GERD, IBS, history of C. difficile who presents to ED secondary to palpitations off and on x2 weeks. She states symptoms initially started approximately 2 weeks ago that would come and go and was just described as, "rapid heartbeat," for several minutes before resolving. She noticed last after drinking a coffee with an espresso shot she developed similar symptoms. This also occurred after shoveling snow when she thought maybe she overdid it. Last night symptoms started again at approximately 5 PM. This time it included rapid heartbeat, lightheadedness, nausea and diaphoresis. She also complained of generalized precordial chest tightness. Symptoms slowly improved and she was able to sleep last night. However, when she woke up first in this morning at approximately 6 AM symptoms returned. She tried to go to work and at work developed worsening palpitations, diaphoresis, lightheadedness and dizziness. She also developed shortness of breath and had difficulty walking to her vehicle. She opted to present to ED. She denies similar symptoms in the past. She does elicit a recent increase in her estrogen placement and thought this may be the cause. She denies any tobacco or illicit drug use. She does not drink significant amount of caffeine. She denies any strong family history of heart disease In ED patient remained hemodynamically stable. BP 145/79, heart rate 61. EKG revealed normal sinus rhythm. Her CBC and CMP was generally unremarkable. TSH WNL. Covid screen negative. Chest CTA was negative for PE, adenopathy, pleural effusion or airspace consolidation. Several scattered low suspicion bilateral solid pulmonary nodules 4 mm. Also noted incidentally were hypodense lesion of right hepatic lobe measuring 2.3 cm suggestive of cyst, but previously 1.2 cm. A few scattered hypodense of the left hepatic lobe as well not completely characterized. Principal Diagnosis DIZZY SPELL PALPITATION Costochondritis Discharge Exam Constitutional WD/WN, vitals as above Eyes PERRL, conjunctivae normal, anicteric sclerae ENMT external ear and nose normal, oropharynx normal Neck trachea midline, no thyromegaly Respiratory normal respiratory effort, lungs clear to auscultation Cardiovascular RRR, no murmur, no edema Gastrointestinal (Abdomen) normal bowel sounds, soft, nontender, no hepatosplenomegaly Musculoskeletal no cyanosis or clubbing, extremities motor strength 5/5 Skin no rashes, warm and dry Neurologic PERRL, EOMI, accommodation nl, no face palsy, no dysarthria Psychiatric A+Ox3, euthymic affect Discharge Data Allergies Allergy/AdvReac Type Severity Reaction Status Date / Time erythromycin base AdvReac Severe vomiting Verified 09/24/20 11:26 metoclopramide AdvReac Severe Joint Pain Verified 09/24/20 11:26 prednisone AdvReac Severe High doses Verified 09/24/20 11:26 cause heart palpitations albuterol AdvReac Mild HEART PALP Unverified 09/24/20 11:26 Penicillins AdvReac Unknown unknown Verified 09/24/20 11:26 Ordered Studies 09/24/20 11:51 CT angio chest PE protocol Stat Hospital Course (1) Palpitations: Total Time Total Time Spent Total Time Spent (In Minutes): 30 mins Total Time Includes: Examination of the Patient, Discharge Planning and Medication Reconciliation Discharge Plan Discharge Items Patient Disposition: Home - Self-Care Reason For Visit: PALPITATIONS, CHEST PAIN Discharge Diagnosis: DIZZY SPELL PALPITATION Costochondritis Activity: Resume your previous activity Non-emergency contact: Primary Care Provider Call non-emergency contact if: you have any medication questions Follow-up/Referrals: Chrissy Moran MD [Primary Care Provider] - (HOSPITAL FOLLOW UP IN A WEEK ) Diet: Regular Ambulatory Orders: Basic Metabolic Panel (Routine) Timeframe: 1 Week Location: Determined by Patient Ordered By: Jaclyn Abreu Attending Provider Instructions: HOSPITAL FOLLOW UP with your family physician Dr. Moran in a week, office will call with you with appointments Lab work: Basic metabolic panel to check your potassium level with next doctor visit Please return to ER or call your family physician office with recurrence of similar symptoms of rapid heartbeat, shortness of breath, dizzy spell or lightheadedness. You were discharged with low-dose potassium tablet for supplement, can also add fruits and vegetable which are high in potassium-bananas, oranges, honeydew , apricots, grape fluits Cooked spinach/ Broccoli Small nodule less than [address] your [address] scan of the chest Because of your prior history of smoking a repeat CT chest with contrast in 12 months is recommended. You will need home cardiac monitoring/Zio patch Your family physician will arranged for referral for Zio patch at [facility] cardiology Sammie Elizabeth Continue symptomatic management for costochondritis. Pending Studies at Discharge: Yes Studies:: Lab: Basic metabolic panel in 1 week Cardiac monitoring Zio patch Repeat CT chest with contrast in 12 months to assess lung nodule Stand-Alone Forms: My [facility], Smoking Cessation Medications and DC Order Prescriptions: New potassium chloride 10 mEq capsule, extended release 10 meq PO DAILY Qty: 30 RF: 0 Continued desloratadine 5 mg tablet 5 mg PO QPM RF: 0 levalbuterol tartrate [Xopenex HFA] 45 mcg/actuation HFA aerosol inhaler 2 inh inhalation Q6H Qty: 15 RF: 3 (DME) nebulizer accessories Kit See Rx Instructions .ROUTE .MEDSUPPLY Qty: 2 RF: 5 estradiol 0.5 mg tablet 0.5 mg PO QAM RF: 0 One-A-Day Women's 50 Plus 400-20 mcg Tablet 1 tab PO DAILY RF: 0 Discharge Orders: Discharge Order (Routine); Ordered 09/25/20 Ordered By: Jaclyn Palomo Admission Data Admit Date/Time: 09/24/20 14:04 Attending Provider: Jaclyn Palomo Admit Provider: Kd León Primary Care Provider: Chrissy Moran Other Providers: Kd León Other Interventions: Discharge Summary Assessment (RN) Last Done: 09/25/20 11:32
== END 2020-09-25 14:03 | disposition home or self-care (01) ==
LOC: ED 10:11 → 2N 10:11 → SUATTDRO 14:04 → 2N 16:41